=== PATIENT | female | born 1960 | race Hispanic/Latino ===

== ENCOUNTER 2018-01-28 08:50 | Emergency (ER) | payer SELFPAY ==
[~2018-01-28] VITALS: Ht 154.9 cm; Wt 86.6 kg
[~2018-01-28 08:50] MED LIST: AMLODIPINE BESYL5 MG PO; KEFLEX500 MG PO; LISINOPRIL10 MG PO; ULTRAM50 MG PO
--- OUTSIDE RECORDS SUMMARY | 2018-01-28 08:52 | XMS REPORT ---
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 Allergies, Adverse Reactions, Alerts This patient has no known allergies or adverse reactions. Medications This patient has no known medications. Encounters Start Date/Time End Date/Time Encounter Type Admission Type Attending [facility] Facility Care Department Encounter ID 2018-04-13 00:00:00 2018-04-13 00:00:00 Outpatient [facility] [id number] 2018-01-28 00:00:00 2018-01-28 00:00:00 Outpatient [facility] [id number] 2018-01-12 00:00:00 2018-01-12 00:00:00 Outpatient [facility] [id number] 2017-12-30 11:41:35 2017-12-30 11:41:35 Outpatient [facility] [id number] 2017-12-24 08:20:35 2017-12-24 08:20:35 Outpatient [facility] [id number] 2017-12-11 12:32:55 2017-12-11 12:32:55 Outpatient [facility] [id number] 2017-12-09 14:58:09 2017-12-09 14:58:09 Outpatient [facility] [id number] 2017-10-15 00:00:00 2017-10-15 00:00:00 Outpatient [facility] [id number] 2017-10-13 15:48:01 2017-10-13 15:48:01 Outpatient [facility] [id number] 2017-09-02 00:00:00 2017-09-02 00:00:00 Outpatient [facility] [id number] 2017-08-13 09:12:12 2017-08-13 09:12:12 Outpatient [facility] [id number] 2017-07-10 09:35:01 2017-07-10 09:35:01 Outpatient [facility] [id number] 2017-07-08 15:56:52 2017-07-08 15:56:52 Outpatient [facility] [id number] 2017-07-08 12:55:30 2017-07-08 12:55:30 Outpatient [facility] [id number] 2017-07-08 09:51:11 2017-07-08 09:51:11 Outpatient [facility] [id number] 2017-07-08 00:00:00 2017-07-08 00:00:00 Outpatient [facility] [id number]
[2018-01-28] MEDS: ONDANSETRON HCL 4 MG ORAL DISINTEGRATING TAB PO ONE (09:41)
[2018-01-28] MEDS: PROPOFOL IV EMULSION 10 MG/ML 20 ML VIAL IV ONE (10:49)
[2018-01-28] MEDS: FENTANYL CITRATE/PF 100MCG/2 ML INJ IV PRN (11:02)
[2018-01-28] MEDS: MORPHINE SULFATE 4 MG/ML SYR IV STA (11:52)
[2018-01-28 12:54] VITALS: BP 166/86
== END 2018-01-28 12:57 | disposition home or self-care (01) ==
LOC: FSED 08:50
DX: S52.572A Other intraarticular fracture of lower end of left radius, initial encounter for closed fracture (principal); S52.615A Nondisplaced fracture of left ulna styloid process, initial encounter for closed fracture; W01.0XXA Fall on same level from slipping, tripping and stumbling without subsequent striking against object, initial encounter; Y92.009 Unspecified place in unspecified non-institutional (private) residence as the place of occurrence of the external cause; S30.0XXA Contusion of lower back and pelvis, initial encounter; I10 Essential (primary) hypertension
CPT/HCPCS: 25605; 72100; 73110; 85025; 96374; 99284; J2270

== ENCOUNTER 2019-07-23 15:46 | Emergency (ER) | payer SELFPAY ==
[~2019-07-23] VITALS: Ht 154.9 cm; Wt 85.7 kg
[2019-07-23] MEDS ORDERED: KETOROLAC TROMETHAMINE 30 MG/ML VIAL ONE (16:23)
[2019-07-23] MEDS ORDERED: KETOROLAC TROMETHAMINE 30 MG/ML VIAL IM NR (16:30)
--- NOTE | 2019-07-23 16:48 | Diagnostic Imaging Report ---
Exam: Toe 3 views History: Trauma Comparison: None. Findings: Possible nondisplaced fracture distal phalanx third toe. Joint spaces preserved. No abnormal soft tissue calcification or soft tissue defect. Impression: Possible nondisplaced fracture distal phalanx third toe Signed by: Dr. Edson Salas M.D. on 07/23/2019 4:44 PM
[2019-07-23 16:57] VITALS: BP 163/77
== END 2019-07-23 17:07 | disposition home or self-care (01) ==
LOC: FSED 15:46
DX: S92.525A Nondisplaced fracture of middle phalanx of left lesser toe(s), initial encounter for closed fracture (principal); X58.XXXA Exposure to other specified factors, initial encounter; Y92.019 Unspecified place in single-family (private) house as the place of occurrence of the external cause; W22.8XXA Striking against or struck by other objects, initial encounter; I10 Essential (primary) hypertension; Z85.038 Personal history of other malignant neoplasm of large intestine; Z88.5 Allergy status to narcotic agent; F17.210 Nicotine dependence, cigarettes, uncomplicated
CPT/HCPCS: 73660; 96372; 99283; J1885

== ENCOUNTER 2021-10-21 12:27 | Emergency (ER) | payer OTHER ==
[~2021-10-21] VITALS: Ht 154.9 cm; Wt 86.2 kg
[2021-10-21] MEDS ORDERED: SODIUM CHLORIDE 0.9% 1000ML 1,000 ML IV STA (13:47)
[2021-10-21] MEDS ORDERED: ONDANSETRON HCL INJ 2MG/ML 2ML 2 MG/ML VIAL IV ONE (14:00)
[2021-10-21] MEDS ORDERED: KETOROLAC TROMETHAMINE 30 MG/ML VIAL IV ONE (14:00)
[2021-10-21] MEDS ORDERED: ONDANSETRON HCL INJ 2MG/ML 2ML 2 MG/ML VIAL ONE (14:27)
[2021-10-21] MEDS ORDERED: SODIUM CHLORIDE 0.9% 1000ML 1,000 ML ONE (14:27)
[2021-10-21] MEDS ORDERED: KETOROLAC TROMETHAMINE 30 MG/ML VIAL ONE (14:27)
[2021-10-21] MEDS ORDERED: IBUPROFEN IB200 MG PO (14:52)
== END 2021-10-21 15:33 | disposition home or self-care (01) ==
LOC: FSED 12:33
DX: M47.816 Spondylosis without myelopathy or radiculopathy, lumbar region (principal); R10.31 Right lower quadrant pain; I10 Essential (primary) hypertension; Z85.038 Personal history of other malignant neoplasm of large intestine
CPT/HCPCS: 74176; 80053; 81003; 85025; 99283; J1885; J2405; J7030

== ENCOUNTER 2022-08-18 18:31 | Emergency (ER) | payer OTHER ==
[~2022-08-18] VITALS: Ht 154.9 cm; Wt 86.2 kg
[~2022-08-18 18:31] MED LIST changes: +IBUPROFEN IB200 MG PO
== END 2022-08-18 20:30 | disposition home or self-care (01) ==
LOC: FSED 18:53
DX: S40.012A Contusion of left shoulder, initial encounter (principal); W18.39XA Other fall on same level, initial encounter; Y92.89 Other specified places as the place of occurrence of the external cause; I10 Essential (primary) hypertension; M47.816 Spondylosis without myelopathy or radiculopathy, lumbar region; Z85.038 Personal history of other malignant neoplasm of large intestine
CPT/HCPCS: 99283

== ENCOUNTER 2023-03-05 20:01 | Emergency (ER) | payer OTHER ==
[~2023-03-05] VITALS: Ht 154.9 cm; Wt 90.7 kg
[2023-03-05] MEDS ORDERED: KETOROLAC TROMETHAMINE 60 MG/2 ML VIAL ONE (20:55)
[2023-03-05] MEDS ORDERED: KETOROLAC TROMETHAMINE 60 MG/2 ML VIAL IM ONE (21:00)
[2023-03-05] MEDS ORDERED: PREDNISONE20 MG PO (22:18)
[2023-03-05] MEDS ORDERED: KETOROLAC TROME10 MG PO (22:18)
[2023-03-05 23:42] VITALS: BP 178/82; PULSE 86; RESP 18; TEMP 97.7; O2SAT 100
== END 2023-03-05 22:29 | disposition home or self-care (01) ==
LOC: FSED 20:04
DX: M54.42 Lumbago with sciatica, left side (principal); M71.22 Synovial cyst of popliteal space [Baker], left knee; I10 Essential (primary) hypertension; Z85.89 Personal history of malignant neoplasm of other organs and systems
CPT/HCPCS: 93971; 96372; 99283; J1885

== ENCOUNTER 2025-06-18 20:22 | Emergency (ER) | payer OTHER ==
[~2025-06-18] VITALS: Ht 154.9 cm; Wt 79.4 kg
[~2025-06-18 20:22] MED LIST changes: +ABILIFY5 MG PO; +IBUPROFEN200 MG PO; +IBUPROFEN600 MG PO; +KETOROLAC TROME10 MG PO; +LYRICA75 MG PO; +NEURONTIN100 MG PO; +PREDNISONE20 MG PO; +TYLENOL325 MG PO
[2025-06-18 20:30] VITALS: PULSE 78; RESP 16; TEMP 98.1
[2025-06-18] MEDS: DIPHTH,PERTUSS(ACELL),TET VAC 0.5 ML SYRINGE IM ONE (21:22)
[2025-06-18 21:29] VITALS: BP 166/71; PULSE 70; RESP 16; TEMP 98.1; O2SAT 100
== END 2025-06-18 21:38 | disposition home or self-care (01) ==
LOC: FSED 20:36
DX: R53.1 Weakness (principal); S80.211A Abrasion, right knee, initial encounter; W18.39XA Other fall on same level, initial encounter; Y92.89 Other specified places as the place of occurrence of the external cause; I10 Essential (primary) hypertension; Z85.038 Personal history of other malignant neoplasm of large intestine
CPT/HCPCS: 80048; 85025; 93005; 96372; 99284